=== PATIENT | male | born 1990 | race Caucasian/White ===

== ENCOUNTER 2016-10-12 15:42 | Emergency (ER) | payer OTHER ==
[~2016-10-12] VITALS: Ht 185.4 cm; Wt 102.1 kg
[2016-10-12] MEDS ORDERED: KEFLEX500 MG PO (15:53)
[2016-10-12 16:59] VITALS: BP 117/78
== END 2016-10-12 15:55 | disposition home or self-care (01) ==
LOC: ER 15:42
DX: S61.411A Laceration without foreign body of right hand, initial encounter (principal); F10.99 Alcohol use, unspecified with unspecified alcohol-induced disorder; W26.8XXA Contact with other sharp object(s), not elsewhere classified, initial encounter; Y93.89 Activity, other specified; Y92.89 Other specified places as the place of occurrence of the external cause; Y99.8 Other external cause status